=== PATIENT | female | born 2000 | race Caucasian/White ===

== ENCOUNTER 2021-10-10 16:15 | Inpatient (IN) ==
[2021-10-10 17:17] LABS: Basophils # (auto) 0.04 K/uL (0-0.2); Basophils % (auto) 0.6 %; Eosinophils # (auto) 0.07 K/uL (0-0.5); Hematocrit (blood only) 38.4 % (37-47); Hemoglobin 12.7 g/dL (12.0-16.0); Immature Granulocytes # (auto) 0.01 K/uL (0.00-0.02); Immature Granulocytes % (auto) 0.1 %; Lymphocytes # (auto) 1.94 K/uL (1.2-3.4); Lymphocytes % (auto) 28.9 %; Mean Corpuscular Hemoglobin 29.5 pg (25-34); Mean Corpuscular Hgb Conc 33.1 g/dL (32-36); Mean Corpuscular Volume 89.3 fL (80-100); Mean Platelet Volume 10.1 fL (7.4-10.4); Monocytes # (auto) 0.65 K/uL (0.11-0.59); Monocytes % (auto) 9.7 %; Neutrophils % (auto) 59.7 %; Platelet Count 318 K/uL (130-400); RDW Coefficient of Variation 12.8 % (11.5-14.5); RDW Standard Deviation 41.5 fL (36.4-46.3); White Blood Count 6.71 K/uL (4.8-10.8)
[2021-10-10 17:26] LABS: POC Urine Bilirubin Negative (Negative); POC Urine Blood Negative (Negative); POC Urine Glucose Normal (Normal); POC Urine Ketones 1+ (Small) (Negative); POC Urine Leukocytes Negative (Negative); POC Urine Nitrite Negative (Negative); POC Urine Protein Negative (Negative); POC Urine Urobilinogen Normal (Normal); POC Urine pH 5 (4.5-7.5)
[2021-10-10 17:36] LABS: Appearance Urine Clear (Clear); Bilirubin Urine Negative (Negative); Blood Urine Negative (Negative); Color Urine Yellow; Glucose Urine UA Negative (Negative); Ketones Urine Negative (Negative); Leukocyte Esterase Urine Negative (Negative); Nitrite Urine Negative (Negative); Protein Urine Negative (Negative); Specific Gravity Urine 1.009 (1.000-1.030); Urobilinogen Urine Negative (Negative); pH Urine 6.5 (4.5-7.5)
[2021-10-10 17:40] LABS: Acetaminophen < 2 ug/ml (10-30); Albumin Level 3.7 gm/dl (3.4-5.0); BUN Creatinine Ratio 18.1 (10-20); Calcium 9.2 mg/dl (8.5-10.1); Creatinine Clr Calc Pharmacy 110.1 ml/min; Est GFR (African American) 135.5 ml/min; Est GFR (Non-African American) 116.9 ml/min; Potassium 3.8 mmol/L (3.5-5.1); Salicylate < 1.7 mg/dl (2.8-20)
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
[2021-10-10 17:50] LABS: Bilirubin,Total 0.4 mg/dl (0.2-1); Globulin 3.8 gm/dl (2.5-4.0); Thyroid Stimulating Hormone 3.92 uIu/ml (0.300-4.500); Total Protein 7.5 gm/dl (6.4-8.2)
[2021-10-10 17:50] LABS: Amphetamines+Metham, Urine Neg (Neg); Barbiturates, Urine Neg (Neg); Benzodiazepine, Urine Neg (Neg); Cocaine, Urine Neg (Neg); MDMA (Ecstacy), Urine Neg (Neg); Methadone, Urine Neg (Neg); Opiate, Urine Neg (Neg); Phencyclidine, Urine Neg (Neg)
[2021-10-10] MEDS ORDERED: hydrOXYzine HCl 25 MG TAB PO PRN ×2 (21:21)
[2021-10-10] MEDS ORDERED: SODIUM CHLORIDE 0.65% NA SOLN 45 ML (OCEAN) PRN (21:21)
[2021-10-10] MEDS ORDERED: BISMUTH SUBSALICYLATE LIQD 236 ML PO PRN (21:21)
[2021-10-10] MEDS ORDERED: ALUMINUM/MAGNESIUM SUSP 30 ML UDC PO PRN (21:21)
[2021-10-10] MEDS ORDERED: MAGNESIUM HYDROXIDE SUSP 30 ML UDC PO PRN (21:21)
--- NOTE | 2021-10-10 21:46 | Emergency Department Note ---
ED Visit Note Patient was signed out to me at change of shift from Dr. Staples. Patient was accepted here at this facility to [facility] [address] for psychiatric care under 201 for suicidal ideations. She was transferred to inpatient care in stable condition. She remained calm and cooperative while under my care here in the ED did not require any acute medical interventions while she was pending admission. .
[2021-10-10] MEDS: ACETAMINOPHEN 325 MG TAB PO PRN (22:49)
[2021-10-11] MEDS: ACETAMINOPHEN 325 MG TAB PO PRN (08:58)
[2021-10-11] MEDS ORDERED: FLUARIX QUADRIVALENT 0.5 ML SYR IM ONE (09:00)
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
[2021-10-11] MEDS: traZODone HCL 50 MG TAB PO SCH (22:43)
[2021-10-12] MEDS: SERTRALINE HCL 50 MG TABLET PO SCH (09:02)
--- NOTE | 2021-10-12 14:31 | Psychiatric Progress Note ---
Date of Service October 12, 2021 Impression / Recommendations Impression The patient is a 21 year old with a history of depression, anxiety and trauma who was admitted for worsening mood symptoms and SI with plan of asphyxiation. Diagnostically consistent with LUIS, social anxiety, PTSD and MDD. Suspect episodes of possible AH/VH are related to extreme anxiety following trauma and sleep depravation as no other signs or symptoms concerning for psychotic spectrum illness, medical workup stable, no neurological symptoms, and UDS negative. Her acute risk of self-harm is high given worsening SI with plan and thoughts of writing goodbye notes and weakening deterrents, lack of future- orientation, major mood disorder, psychiatric comorbidities (anxiety & PTSD), and hopelessness. The patient is deemed unstable and requires psychiatric hospitalization for diagnostic clarification, safety and stabilization, medication management and development of further coping skills. 10/12/21: Continues to have significant anxiety and depressed mood with intermittent SI but none so far today. Set a boundary with her mother and revised her JAVAN and parents declined to participate in family meeting which does create some challenges for disposition planning. Goal of establishing outpatient therapy and/or IOP but Kate remains unsure if she wants to [place] [facility] [employer] in the spring or if [place] living in [place] and taking the [place] off and she's considering other potential options such as living in [place] but instead of attending classes working and spending time addressing her mental health. (1) Suicidal ideation: (2) MDD (major depressive disorder), recurrent episode, severe: (3) Post traumatic stress disorder (PTSD): (4) LUIS (generalized anxiety disorder): (5) Social anxiety disorder: (6) Excoriation (skin-picking) disorder: 10/12/21: continue sertraline and trazodone. She is going to contact her brother to set up a time for a family meeting with him for tomorrow as her parents have declined to participate. She will work on her safety plan. 10/11/21: The patient was admitted to the [facility] ([facility]) on q15 min checks (behavioral with suicide precautions) for safety. The patient will participate in group, recreational, and milieu therapies and will be offered additional individual and family sessions as clinically appropriate. -Begin sertraline 50 mg qAM for LUIS/MDD/PTSD -Begin trazodone 50 mg qhs for insomnia and MDD -Goal of establishing outpatient therapy Inventory Assets Strengths: insightful, motivated to seek treatment and feel better, willing to learn new coping skills Needs: medication adjustments, outpatient provider for therapy Risk Factors Assessment Male: No : Yes Do You Have Access To A Gun?: No (none at apt,parents have gun but secured in safe she has no access to) Health Problems: No Mental Health Diagnoses: Yes Substance Use Disorders: No Previous Attempt: No Family History of Suicide: No Previous Psychiatric Hospitalization: No Hopelessness: Yes Smoker: No Protective Factors Assessment Employed: No Stable Relationships: Yes Supportive Family: Yes Interval History Identifying Information KATE GENAO is a 21-year-old woman and current [employer] student with a history of PTSD and depression, and was admitted on 10/10/21 21:21 on a 201 voluntary commitment for worsening mood and SI with thoughts of asphyxiation via carbon monoxide. Chief Complaint "I was feeling really anxious and suicidal after talking with my mom". Review of Systems Sleep Information Total Hours of Sleep: 6 Meal Information Percent Meal Consumed - Breakfast: 50 Percent Meal Consumed - Lunch: 85 Percent Meal Consumed - Dinner: 100 Subjective Subjective Patient was seen & assessed and interval progress reviewed with treatment team nursing and social work. Kate's mother called our SW yesterday afternoon and declined the scheduled family meeting stating Kate's parents desire to have a family meeting in the outpatient setting. Yesterday evening Kate changed her JAVAN now requesting very limited information be shared with her parents and stating her wish that no doctors speak to or share any information with her parents. In processing these decisions today she notes that she had an upsetting phone call with her mother last night and that she's noticed that speaking with her mother worsens her anxiety and suicidal thoughts so she wanted to set boundaries around this while she is in the hospital. She was still hopeful for a family meeting but since her parents do not wish to participate she would like to have the family meeting with her older brother tomorrow instead. She notes that she feels her mother turns "what I say into something malicious" and that "she weaponizes whatever I share with her so it's hard to talk to her about things". Today she notes slight improve in mood and denies current SI. She did have an awful nightmare last night involving a theme of trauma but was able to fall asleep more easily with the trazodone. She tolerated the first dose of sertraline well without any side effects. Physical Exam Psychiatric Orientation: alert and oriented x 3 Apperance: appropriately dressed and appropriately groomed Eye Contact: good eye contact Motor Behavior: steady gait and station and no abnormal motor movements Speech: normal rate/rhythm/volume of speech Affect: + depressed affect Mood: + depressed mood and + anxious mood Thought Process: goal directed thought process Thought Content: reality based without delusions Suicidal Thoughts: denies suicidal thoughts Homicidal Thoughts: denies homicidal thoughts Hallucinations: no auditory hallucinations and no visual hallucinations Cognition: recent memory grossly intact, remote memory grossly intact, attention grossly intact and language grossly intact Estimated Intelligence: consistent with education level Insight: + fair insight Judgement: + fair judgement Vital Signs (Past 24 Hours) Last Vital Signs Temp 36.9 C 10/12/21 06:41 Pulse 101 H 10/12/21 06:42 Resp 16 10/12/21 06:41 BP 93/63 L 10/12/21 06:42 Pulse Ox 98 10/10/21 21:50 Results & Data ([facility]) Current Inpatient Medications Current Inpatient Medications: Current Inpatient Medications Acetaminophen (Acetaminophen 325 Mg Tab) 650 mg PO Q4H PRN PRN Reason: Headache or Minor Fever Stop: 11/09/21 21:20 Last Admin: 10/11/21 08:58 Dose: 650 mg Documented by: Al Hydrox/Mg Hydrox/Simethicone (Aluminum/Magnesium Susp 30 Ml Udc) 30 ml PO Q4H PRN PRN Reason: GI Upset Stop: 11/09/21 21:20 Bismuth Subsalicylate (Bismuth Subsalicylate Liqd 236 Ml) 15 ml PO PRN PRN PRN Reason: Loose Stool Stop: 11/09/21 21:20 Hydroxyzine HCl (Hydroxyzine Hcl 25 Mg Tab) 50 mg PO HSZ PRN PRN Reason: Insomnia Stop: 11/09/21 21:20 Last Admin: 10/10/21 23:22 Dose: 50 mg Documented by: Hydroxyzine HCl (Hydroxyzine Hcl 25 Mg Tab) 25 mg PO Q4H PRN PRN Reason: Anxiety Stop: 11/09/21 21:20 Magnesium Hydroxide (Magnesium Hydroxide Susp 30 Ml Udc) 30 ml PO DAILY PRN PRN Reason: Constipation Stop: 11/09/21 21:20 Sertraline HCl (Sertraline Hcl 50 Mg Tablet) 50 mg PO QAM JACKI Stop: 11/11/21 08:59 Last Admin: 10/12/21 09:02 Dose: 50 mg Documented by: Sodium Chloride (Sodium Chloride 0.65% Na Soln 45 Ml ([employer] [facility])) 1 - 2 sprays NA PRN PRN PRN Reason: Nasal Dryness/Congestion Stop: 11/09/21 21:20 Trazodone HCl (Trazodone Hcl 50 Mg Tab) 50 mg PO HS JACKI Stop: 11/10/21 21:59 Last Admin: 10/11/21 22:43 Dose: 50 mg Documented by: Mental Health & Subst Abuse Tx Therapist Name of Therapist: None [employer] Name of [employer]: None Post Discharge Appointments Primary Care Physician Name Of Family Doctor: [facility]
[2021-10-12] MEDS: traZODone HCL 50 MG TAB PO SCH (21:57)
[2021-10-13] MEDS: SERTRALINE HCL 50 MG TABLET PO SCH (09:06)
--- NOTE | 2021-10-13 11:30 | Psychiatric Progress Note ---
Date of Service October 13, 2021 Impression / Recommendations Impression The patient is a 21 year old with a history of depression, anxiety and trauma who was admitted for worsening mood symptoms and SI with plan of asphyxiation. Diagnostically consistent with LUIS, social anxiety, PTSD and MDD. Suspect episodes of possible AH/VH are related to extreme anxiety following trauma and sleep depravation as no other signs or symptoms concerning for psychotic spectrum illness, medical workup stable, no neurological symptoms, and UDS negative. Her acute risk of self-harm is high given worsening SI with plan and thoughts of writing goodbye notes and weakening deterrents, lack of future- orientation, major mood disorder, psychiatric comorbidities (anxiety & PTSD), and hopelessness. The patient is deemed unstable and requires psychiatric hospitalization for diagnostic clarification, safety and stabilization, medication management and development of further coping skills. As per Dr. Starr. 10/13/21: improving, ongoing sleep issues (1) Post traumatic stress disorder (PTSD): (2) MDD (major depressive disorder), recurrent episode, severe: (3) LUIS (generalized anxiety disorder): 10/13/21: trazodone increase to 75 mg daily. Reviewed care by Dr. Starr up to this point in hospitalization. 10/12/21: continue sertraline and trazodone. She is going to contact her brother to set up a time for a family meeting with him for tomorrow as her parents have declined to participate. She will work on her safety plan. 10/11/21: The patient was admitted to the [facility] ([facility] mental health unit) on q15 min checks (behavioral with suicide precautions) for safety. The patient will participate in group, recreational, and milieu therapies and will be offered additional individual and family sessions as clinically appropriate. -Begin sertraline 50 mg qAM for LUIS/MDD/PTSD -Begin trazodone 50 mg qhs for insomnia and MDD -Goal of establishing outpatient therapy Inventory Assets Strengths: insightful, motivated to seek treatment and feel better, willing to learn new coping skills Needs: medication adjustments, outpatient provider for therapy Risk Factors Assessment Male: No : Yes Do You Have Access To A Gun?: No (none at apt,parents have gun but secured in safe she has no access to) Health Problems: No Mental Health Diagnoses: Yes Substance Use Disorders: No Previous Attempt: No Family History of Suicide: No Previous Psychiatric Hospitalization: No Hopelessness: Yes Smoker: No Protective Factors Assessment Employed: No Stable Relationships: Yes Supportive Family: Yes Interval History Identifying Information ELIAZAR GENAO is a 21-year-old woman and current [employer] student with a history of PTSD and depression, and was admitted on 10/10/21 21:21 on a 201 voluntary commitment for worsening mood and SI with thoughts of asphyxiation via carbon monoxide. Chief Complaint "I was just overwhelmed with everything". Review of Systems Sleep Information Total Hours of Sleep: 7.5 Sleep Comments: pt given trazodone per rn. pt on q-15 minute checks Meal Information Percent Meal Consumed - Breakfast: 25 Percent Meal Consumed - Lunch: 85 Percent Meal Consumed - Dinner: 100 Subjective Subjective Patient was seen & assessed and interval progress reviewed with nursing and s ocial work. States that she is still waking up a few times at night. Has been processing with family. Denies side effects of SSRI. Family doesn't want meeting. Physical Exam Psychiatric Orientation: alert and oriented x 3 Apperance: appropriately dressed and appropriately groomed Eye Contact: good eye contact Motor Behavior: steady gait and station and no abnormal motor movements Speech: normal rate/rhythm/volume of speech Affect: + depressed affect Mood: + depressed mood and + anxious mood Thought Process: goal directed thought process Thought Content: reality based without delusions Suicidal Thoughts: denies suicidal thoughts Homicidal Thoughts: denies homicidal thoughts Hallucinations: no auditory hallucinations and no visual hallucinations Cognition: recent memory grossly intact, remote memory grossly intact, attention grossly intact and language grossly intact Estimated Intelligence: consistent with education level Insight: + fair insight Judgement: + fair judgement Vital Signs (Past 24 Hours) Last Vital Signs Temp 36.9 C 10/13/21 06:49 Pulse 111 H 10/13/21 06:49 Resp 16 10/13/21 06:49 BP 98/64 L 10/13/21 06:49 Pulse Ox 98 10/10/21 21:50 Results & Data ([facility] [[email or web address] Current Inpatient Medications Current Inpatient Medications: Current Inpatient Medications Acetaminophen (Acetaminophen 325 Mg Tab) 650 mg PO Q4H PRN PRN Reason: Headache or Minor Fever Stop: 11/09/21 21:20 Last Admin: 10/11/21 08:58 Dose: 650 mg Documented by: Al Hydrox/Mg Hydrox/Simethicone (Aluminum/Magnesium Susp 30 Ml Udc) 30 ml PO Q4H PRN PRN Reason: GI Upset Stop: 11/09/21 21:20 Bismuth Subsalicylate (Bismuth Subsalicylate Liqd 236 Ml) 15 ml PO PRN PRN PRN Reason: Loose Stool Stop: 11/09/21 21:20 Hydroxyzine HCl (Hydroxyzine Hcl 25 Mg Tab) 50 mg PO HSZ PRN PRN Reason: Insomnia Stop: 11/09/21 21:20 Last Admin: 10/10/21 23:22 Dose: 50 mg Documented by: Hydroxyzine HCl (Hydroxyzine Hcl 25 Mg Tab) 25 mg PO Q4H PRN PRN Reason: Anxiety Stop: 11/09/21 21:20 Magnesium Hydroxide (Magnesium Hydroxide Susp 30 Ml Udc) 30 ml PO DAILY PRN PRN Reason: Constipation Stop: 11/09/21 21:20 Sertraline HCl (Sertraline Hcl 50 Mg Tablet) 50 mg PO QAM JACKI Stop: 11/11/21 08:59 Last Admin: 10/13/21 09:06 Dose: 50 mg Documented by: Sodium Chloride (Sodium Chloride 0.65% Na Soln 45 Ml ([place])) 1 - 2 sprays NA PRN PRN PRN Reason: Nasal Dryness/Congestion Stop: 11/09/21 21:20 Trazodone HCl (Trazodone Hcl 100 Mg Tab) 75 mg PO HS JACKI Stop: 11/12/21 21:59 Mental Health & Subst Abuse Tx Therapist Name of Therapist: None Gravity Meter Operator Name of Gravity Meter Operator: None Post Discharge Appointments Primary Care Physician Name Of Family Doctor: CHRIST
[2021-10-13] MEDS: ACETAMINOPHEN 325 MG TAB PO PRN (12:05)
[2021-10-13] MEDS ORDERED: traZODone HCL 100 MG TAB PO SCH (22:00)
[2021-10-13] MEDS: traZODone HCL 100 MG TAB PO SCH (22:08)
[2021-10-14] MEDS: SERTRALINE HCL 50 MG TABLET PO SCH (09:18)
--- NOTE | 2021-10-14 13:41 | Psychiatric Progress Note ---
Date of Service October 14, 2021 Impression / Recommendations Impression The patient is a 21 year old with a history of depression, anxiety and trauma who was admitted for worsening mood symptoms and SI with plan of asphyxiation. Diagnostically consistent with LUIS, social anxiety, PTSD and MDD. Suspect episodes of possible AH/VH are related to extreme anxiety following trauma and sleep depravation as no other signs or symptoms concerning for psychotic spectrum illness, medical workup stable, no neurological symptoms, and UDS negative. Her acute risk of self-harm is high given worsening SI with plan and thoughts of writing goodbye notes and weakening deterrents, lack of future- orientation, major mood disorder, psychiatric comorbidities (anxiety & PTSD), and hopelessness. The patient is deemed unstable and requires psychiatric hospitalization for diagnostic clarification, safety and stabilization, medication management and development of further coping skills. As per Dr. Starr. 10/14/21: anxiety about transition home but otherwise appropriate (1) Post traumatic stress disorder (PTSD): (2) MDD (major depressive disorder), recurrent episode, severe: (3) LUIS (generalized anxiety disorder): 10/14/21: biitnue current med and treatment plan. 10/13/21: trazodone increase to 75 mg daily. Reviewed care by Dr. Starr up to this point in hospitalization. 10/12/21: continue sertraline and trazodone. She is going to contact her brother to set up a time for a family meeting with him for tomorrow as her parents have declined to participate. She will work on her safety plan. 10/11/21: [facility] mental [facility]) on q15 min checks (behavioral with suicide precautions) for safety. The patient will participate in group, recreational, and milieu therapies and will be offered additional individual and family sessions as clinically appropriate. -Begin sertraline 50 mg qAM for LUIS/MDD/PTSD -Begin trazodone 50 mg qhs for insomnia and MDD -Goal of establishing outpatient therapy Inventory Assets Strengths: insightful, motivated to seek treatment and feel better, willing to learn new coping skills Needs: medication adjustments, outpatient provider for therapy Risk Factors Assessment Male: No : Yes Do You Have Access To A Gun?: No (none at apt,parents have gun but secured in safe she has no access to) Health Problems: No Mental Health Diagnoses: Yes Substance Use Disorders: No Previous Attempt: No Family History of Suicide: No Previous Psychiatric Hospitalization: No Hopelessness: Yes Smoker: No Protective Factors Assessment Employed: No Stable Relationships: Yes Supportive Family: Yes Interval History Identifying Information ELIAZAR GENAO is a 21-year-old woman and current [employer] student with a history of PTSD and depression, and was admitted on 10/10/21 21:21 on a 201 voluntary commitment for worsening mood and SI with thoughts of asphyxiation via carbon monoxide. Chief Complaint "Yeah I want to go home for awhile". Review of Systems Sleep Information Total Hours of Sleep: 6.5 Sleep Comments: pt given trazodone per rn. pt on q-15 minute checks Meal Information Percent Meal Consumed - Breakfast: 10 Percent Meal Consumed - Lunch: 80 Percent Meal Consumed - Dinner: 100 Subjective Subjective Patient was seen & assessed and interval progress reviewed with nursing and social work. Patient is rather back and forth about what she would like her aftercare plan to look like, how much info to share with parents. Tolerating medications. States sleep was OK. Physical Exam Psychiatric Orientation: alert and oriented x 3 Apperance: appropriately dressed and appropriately groomed Eye Contact: good eye contact Motor Behavior: steady gait and station and no abnormal motor movements Speech: normal rate/rhythm/volume of speech Mood: + anxious mood Thought Process: goal directed thought process Thought Content: reality based without delusions Suicidal Thoughts: denies suicidal thoughts Homicidal Thoughts: denies homicidal thoughts Hallucinations: no auditory hallucinations and no visual hallucinations Cognition: recent memory grossly intact, remote memory grossly intact, attention grossly intact and language grossly intact Estimated Intelligence: consistent with education level Insight: + fair insight Judgement: + fair judgement Vital Signs (Past 24 Hours) Last Vital Signs Temp 36.9 C 10/14/21 06:46 Pulse 91 H 10/14/21 06:46 Resp 16 10/14/21 06:46 BP 97/67 L 10/14/21 06:46 Pulse Ox 98 10/10/21 21:50 Results & Data ([facility]) Current Inpatient Medications Current Inpatient Medications: Current Inpatient Medications Acetaminophen (Acetaminophen 325 Mg Tab) 650 mg PO Q4H PRN PRN Reason: Headache or Minor Fever Stop: 11/09/21 21:20 Last Admin: 10/13/21 12:05 Dose: 650 mg Documented by: Al Hydrox/Mg Hydrox/Simethicone (Aluminum/Magnesium Susp 30 Ml Udc) 30 ml PO Q4H PRN PRN Reason: GI Upset Stop: 11/09/21 21:20 Bismuth Subsalicylate (Bismuth Subsalicylate Liqd 236 Ml) 15 ml PO PRN PRN PRN Reason: Loose Stool Stop: 11/09/21 21:20 Hydroxyzine HCl (Hydroxyzine Hcl 25 Mg Tab) 50 mg PO HSZ PRN PRN Reason: Insomnia Stop: 11/09/21 21:20 Last Admin: 10/10/21 23:22 Dose: 50 mg Documented by: Hydroxyzine HCl (Hydroxyzine Hcl 25 Mg Tab) 25 mg PO Q4H PRN PRN Reason: Anxiety Stop: 11/09/21 21:20 Magnesium Hydroxide (Magnesium Hydroxide Susp 30 Ml Udc) 30 ml PO DAILY PRN PRN Reason: Constipation Stop: 11/09/21 21:20 Sertraline HCl (Sertraline Hcl 50 Mg Tablet) 50 mg PO QAM JACKI Stop: 11/11/21 08:59 Last Admin: 10/14/21 09:18 Dose: 50 mg Documented by: Sodium Chloride (Sodium Chloride 0.65% Na Soln 45 Ml ([place])) 1 - 2 sprays NA PRN PRN PRN Reason: Nasal Dryness/Congestion Stop: 11/09/21 21:20 Trazodone HCl (Trazodone Hcl 100 Mg Tab) 75 mg PO HS JACKI Stop: 11/12/21 21:59 Last Admin: 10/13/21 22:08 Dose: 75 mg Documented by: Mental Health & Subst Abuse Tx Psychiatrist Psychiatrist's Phone Number: None Psychiatric Appointment Comment: establishing services in [place] Therapist Name of Therapist: None Therapy Appointment Comment: establishing services in [place] Senior Credit Officer Name of Senior Credit Officer: None Post Discharge Appointments Primary Care Physician Name Of Family Doctor: [facility]- Dr. Mayes Primary Care Time of Appointment with PCP: will make appt. after d/c Provider Appointment Comment: [address], [place] [address] Contact Information Discharge
[2021-10-14] MEDS: traZODone HCL 100 MG TAB PO SCH (22:04)
[2021-10-15] MEDS: SERTRALINE HCL 50 MG TABLET PO SCH (09:11)
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
== END 2021-10-15 10:59 | disposition home or self-care (01) | DRG 885 ==
LOC: ED 16:15 → SUATTDRO 21:21 → 3S 21:21